=== PATIENT | male | born 1985 | race Caucasian/White ===

== ENCOUNTER 2018-01-12 17:39 | Emergency (ER) | payer MEDICAID, OTHER ==
[2018-01-12 17:44] VITALS: BP 125/89
--- NOTE | 2018-01-12 17:45 | EDPHY ---
H & P Stated Complaint: wants help detoxing from heroine Time Seen by Provider: 01/12/18 17:45 - Medical/Surgical History Hx Asthma: No Hx Chronic Respiratory Disease: No Hx Diabetes: No Hx Cardiac Disease: No Hx Renal Disease: No Hx Cirrhosis: No Hx Alcoholism: No Hx HIV/AIDS: No Hx Splenectomy or Spleen Trauma: No Other PMH: heroine abuse - Social History Smoking Status: Current every day smoker Constitutional: Initial Vital Signs Temperature (C) 36.7 C 01/12/18 17:42 Heart Rate 92 01/12/18 17:42 Respiratory Rate 18 01/12/18 17:42 Blood Pressure 125/89 H 01/12/18 17:42 O2 Sat (%) 91 L 01/12/18 17:42 O2 Delivery Mode Room Air Allergies/Adverse Reactions: No Known Allergies Allergy (Verified 01/12/18 17:41) Home Medications: Medication Instructions Recorded AMOXICILLIN 01/12/18 Medical Decision Making ED Course/Re-evaluation: CHIEF COMPLAINT: Would like to detox from heroin HISTORY OF PRESENT ILLNESS: The patient is a 32 y/o male with a history of asthma and heroin abuse arriving to the emergency department for heroin detox. He admits to last using heroin this morning. He denies seeking detox in the past. No chest pain, shortness of breath, abdominal pain, urinary or bowel complaints, numbness, paresthesias, fever. REVIEW OF SYSTEMS: A comprehensive 10 system review of systems is otherwise negative aside from elements mentioned in the history of present illness and medical decision making. PHYSICAL EXAM: HR, BP, O2 Sat, RR. Temp noted General Appearance: Alert, well hydrated, appropriate, and non-toxic appearing. Head: Atraumatic without scalp tenderness or obvious injury Eyes: Pupils equal, round, reactive to light and accommodation, EOMI, no trauma , no injection. Ears: Clear bilaterally, no perforation, normal landmarks Nose: Atraumatic, no rhinorrhea, clear. Throat: There is no erythema or exudates, no lesions, normal tonsils, mucus membranes moist. Neck: Supple, nontender, no lymphadenopathy. Respiratory: No retractions, no distress, no wheezes, and no accessory muscle use. Lungs are clear to auscultation bilaterally. Cardiovascular: Regular rate and rhythm, no murmurs, rubs, or gallops. Bilateral carotid, radial, dorsalis pedis, and posterior tibial pulses intact. Good capillary refill all extremities. Gastrointestinal: Abdomen is soft, nontender, non-distended, no masses, no rebound, no guarding, no peritoneal signs. Musculoskeletal: Normal active ROM of all extremities, atraumatic. Neurological: Alert, appropriate, and interactive. The patient has normal DTRs and non-focal cranial nerves, motor, sensory, and cerebellar exam. Skin: No rashes, good turgor, no nodules on palpation. Past medical history: Asthma, heroin abuse Past surgical history: Denies Family history: Denies Social history: Friend at bedside, lives in [place], single DIAGNOSTICS/PROCEDURES/CRITICAL CARE TIME: Not indicated. DIFFERENTIAL DIAGNOSIS: The differential diagnosis for the patient's detox included but was not limited to heroin abuse, medication side effect, drugs, and alcohol abuse. MEDICAL DECISION MAKING: The patient is a 32 y/o male with a history of asthma and heroin abuse arriving to the emergency department for heroin detox. His friend is at the bedside and is willing to drive the patient to the addiction recovery center for further detox. I will discharge him to the [facility] with a prepack of Librium. Return precautions provided; patient is comfortable with this plan. Departure - Departure Disposition: Home, Routine, Self-Care Clinical Impression: Heroin use Condition: Good Instructions: Narcotic Abuse (ED) Additional Instructions: 1. Go to the addiction recovery center. 2. Please refrain from abusing heroin. 3. Return to the emergency department immediately for fever, vomiting, confusion , headache, abdominal pain or other worsening of condition. 4. Followup with your primary care physician within 72 hours for reevaluation. Referrals: [facility] Detox 24 Hours [Outside] - As per Instructions Report Scribed for: Jarrett Simon Report Scribed by: Selene Garner Date of Report: 01/12/18 Time of Report: 17:46
[2018-01-12] MEDS ORDERED: CHLORDIAZEPOXIDE 25MG PREPK#6 BTL TAKEHOME ONE (17:59)
== END 2018-01-12 18:09 | disposition home or self-care (01) ==
DX: F11.90 Opioid use, unspecified, uncomplicated (principal); J45.909 Unspecified asthma, uncomplicated; Z72.0 Tobacco use